=== PATIENT | male | born 1955 | race African-American/Black ===

== ENCOUNTER 2020-09-14 20:37 | Emergency (ER) | payer MEDICAID ==
[~2020-09-14] VITALS: Ht 193 cm; Wt 117.0 kg
[2020-09-14 23:00] VITALS: BP 137/74
[2020-09-17] MEDS ORDERED: GABA-531 PO (01:47)
[2020-09-17] MEDS ORDERED: PREG150C PO (01:47)
[2020-09-17] MEDS ORDERED: CELE-84 PO (01:47)
[2020-09-17] MEDS ORDERED: OXYC30TA89 PO (01:47)
[2020-09-17] MEDS ORDERED: OMEP20CA14 PO (01:47)
[2020-09-17] MEDS ORDERED: FURO-151 MT (16:05)
[2020-09-17] MEDS ORDERED: ASPI-1158 PO (16:05)
== END 2020-09-14 23:24 | disposition left against medical advice (07) ==
LOC: ER 20:37
DX: R07.89 Other chest pain (principal); R03.0 Elevated blood-pressure reading, without diagnosis of hypertension
CPT/HCPCS: 93005; 99283